=== PATIENT | female | born 1940 | race Caucasian/White ===

== ENCOUNTER 2020-09-12 18:00 | Inpatient (IN) | payer MEDICARE, OTHER ==
[2020-09-12] MEDS ORDERED: HYDROcodone/Acetaminophen 10/325 mg Tablet ONE (18:48)
[2020-09-12 19:38] LABS: #Eosinphils 0.1 thou/uL (0.0-0.7); #Lymphocytes 1.1 thou/uL (1.20-3.40); #Monocytes 0.4 thou/uL (0.11-0.59); #Neutrophils 4.4 thou/uL (1.40-6.50); %Basophils 0.6 % (0.0-1.0); %Eosinophils 1.7 % (0.0-10.0); %Lymphocytes 18.3 % (21.0-51.0); %Monocytes 6.1 % (0.0-10.0); %Neutrophils 73.3 % (42.0-75.0); Hemoglobin 14.1 g/dL (12.0-16.0); Mean Corpuscular HGB CONC 35.1 g/dL (32.0-36.0); Mean Corpuscular Hemoglobin 33.1 pg (27.0-31.0); Mean Corpuscular Volume 94.4 fL (78.0-98.0); Mean Platelet Volume 7.8 fL (7.4-10.4); Platelet Count 205 thou/uL (130-400); RBC Distribution Width 11.6 % (11.5-14.5); Red Blood Cell (RBC) Count 4.27 mill/uL (4.20-5.40)
[2020-09-12 19:58] LABS: ALT (SGPT) 16 U/L (8-55); AST (SGOT) 20 U/L (5-34); Albumin 4.3 g/dL (3.4-4.8); Alkaline Phosphatase 105 U/L (40-110); Anion Gap 16 mmol/L (10-20); BUN (Urea Nitrogen) 20 mg/dL (9.8-20.1); Bilirubin, Total 0.3 mg/dL (0.2-1.2); Calc. Creatinine Clearance 0 mL/min (70-130); Calcium 10.2 mg/dL (7.8-10.44); Carbon Dioxide 24 mmol/L (23-31); Chloride 106 mmol/L (98-107); Globulin 2.8 g/dL (2.4-3.5); Glucose 102 mg/dL (83-110); INR-International Normal Ratio 0.9; PTT 25.2 sec (22.9-36.1); Potassium 4.5 mmol/L (3.5-5.1); Protein, Total 7.1 g/dL (5.8-8.1); Prothrombin Time 12.4 sec (12.0-14.7); Sodium 141 mmol/L (136-145)
[2020-09-12] MEDS ORDERED: Dextrose 5% in Water 1,000 ML IV PRN (21:06)
[2020-09-12] MEDS ORDERED: Dextrose 50% Abboject 50 ML SYRINGE SLOW IVP PRN (21:06)
[2020-09-12] MEDS ORDERED: Ondansetron ODT 4 MG TAB PO PRN (21:06)
[2020-09-12] MEDS ORDERED: Ondansetron PF 4 MG/2 ML Vial IVP PRN (21:06)
[2020-09-12] MEDS ORDERED: Melatonin 3 MG TAB PO PRN (21:06)
[2020-09-12] MEDS ORDERED: traMADol HCl 50 MG TAB PO PRN (21:06)
[2020-09-12] MEDS: Cyclobenzaprine 10 MG TAB PO PRN (21:56)
[2020-09-12] MEDS: Milk Of Magnesia 30 ML UDCUP PO PRN (21:56)
[2020-09-12] MEDS: hydrALAZINE 20 MG/ML VIAL SLOW IVP PRN (21:57)
[2020-09-12] MEDS: Ibuprofen 800 MG TAB PO SCH (21:57)
[2020-09-13] MEDS: Sodium Chloride 0.9% 1,000 ML IV SCH ×2 (00:44→11:58)
[2020-09-13] MEDS: Acetaminophen 325 MG TAB PO SCH ×5 (00:44→23:19)
[2020-09-13 02:58] VITALS: BMI 19.4
[2020-09-13] MEDS: traMADol HCl 50 MG TAB PO PRN ×2 (03:09→16:28)
[2020-09-13] MEDS ORDERED: Famotidine 20 MG TAB PO SCH (03:15)
[2020-09-13 05:20] LABS: #Basophils 0.1 thou/uL (0.0-0.2); #Eosinphils 0.1 thou/uL (0.0-0.7); #Lymphocytes 1.1 thou/uL (1.20-3.40); #Monocytes 0.4 thou/uL (0.11-0.59); #Neutrophils 7.1 thou/uL (1.40-6.50); %Basophils 0.6 % (0.0-1.0); %Eosinophils 0.8 % (0.0-10.0); %Lymphocytes 12.8 % (21.0-51.0); %Neutrophils 80.9 % (42.0-75.0); Hemoglobin 12.5 g/dL (12.0-16.0); Mean Corpuscular HGB CONC 34.7 g/dL (32.0-36.0); Mean Corpuscular Hemoglobin 32.7 pg (27.0-31.0); Mean Corpuscular Volume 94.2 fL (78.0-98.0); Mean Platelet Volume 7.9 fL (7.4-10.4); Platelet Count 159 thou/uL (130-400); RBC Distribution Width 11.7 % (11.5-14.5); Red Blood Cell (RBC) Count 3.84 mill/uL (4.20-5.40); White Blood Cell (WBC) Count 8.8 thou/uL (4.8-10.8)
[2020-09-13 05:36] LABS: Anion Gap 12 mmol/L (10-20); BUN (Urea Nitrogen) 17 mg/dL (9.8-20.1); Calc. Creatinine Clearance 51 mL/min (70-130); Calcium 8.9 mg/dL (7.8-10.44); Carbon Dioxide 22 mmol/L (23-31); Chloride 110 mmol/L (98-107); Glucose 100 mg/dL (83-110); Sodium 140 mmol/L (136-145)
[2020-09-13] MEDS: Ibuprofen 800 MG TAB PO SCH ×4 (06:08→23:19)
[2020-09-13] MEDS: hydrALAZINE 20 MG/ML VIAL SLOW IVP PRN (06:09)
[2020-09-13] MEDS ORDERED: Fentanyl 100 MCG/2 ML VIAL ONE (07:17)
[2020-09-13] MEDS ORDERED: SUGAMMADEX SODIUM 500 MG/5 ML VIAL ONE (07:18)
[2020-09-13] MEDS ORDERED: Protamine Sulfate 50 MG/5 ML VIAL ONE (07:18)
[2020-09-13] MEDS ORDERED: CEFAZOLIN 2 GM in Premix Bag 1 BAG IVPB SCH (08:00)
[2020-09-13] MEDS ORDERED: Rocuronium Bromide 10 MG/ML (10ML VIAL) ONE (08:27)
[2020-09-13] MEDS ORDERED: Lidocaine 1% PF 5 ML VIAL ONE (08:27)
[2020-09-13] MEDS ORDERED: PROPOFOL 200 MG/20 ML VIAL ONE (08:27)
[2020-09-13] MEDS ORDERED: Glycopyrrolate 0.2 MG/ML 5 ML SYRINGE ONE (08:27)
[2020-09-13] MEDS ORDERED: Ondansetron PF 4 MG/2 ML Vial ONE (08:27)
[2020-09-13] MEDS ORDERED: Dexamethasone 20 MG/5 ML VIAL ONE (08:27)
[2020-09-13] MEDS ORDERED: Non-Formulary Item 1 EACH (Denosumab 60 MG/ML Vial) SC SCH (10:15)
[2020-09-13] MEDS: Senokot S 8.6-50 MG TAB PO SCH ×2 (11:59→21:23)
[2020-09-13] MEDS: Amantadine HCl 100 mg Capsule PO SCH (11:59)
[2020-09-13] MEDS: Polyethylene Glycol 3350 17 GM Packet PO SCH (11:59)
[2020-09-13] MEDS: Cyclobenzaprine 10 MG TAB PO PRN (12:16)
[2020-09-13] MEDS ORDERED: Melatonin 3 MG TAB PO PRN (15:00)
[2020-09-13] MEDS: Carbidopa/Levodopa 25-100 mg Tablet PO SCH ×2 (16:31→21:23)
[2020-09-13] MEDS: CEFAZOLIN 2 GM in Premix Bag 1 BAG IVPB SCH ×2 (16:32→23:21)
[2020-09-13] MEDS: Trihexyphenidyl 2 MG TAB PO SCH (17:53)
[2020-09-13] MEDS: Milk Of Magnesia 30 ML UDCUP PO PRN (18:53)
[2020-09-13 18:55] LABS: Bacteria/HPF 4+ HPF (None Seen); Bilirubin Negative (Negative); Blood, Urine Trace (Negative); Clarity Turbid (Clear); Glucose, Urine (Dipstick) Normal (Negative); Ketone, Urine Negative (Negative); Leukocyte 500 Leu/uL (Negative); Nitrite 1+ (Negative); Protein, Urine (Dipstick) 20 mg/dL (Neg-Trace); Specific Gravity, Urine 1.017 (1.002-1.036); Squamous Epithelial 0-3 HPF (0-3); Urobilinogen Normal mg/dL (Less than 2); WBC/HPF Greater than 50 HPF (0-3)
[2020-09-13 18:57] LABS: Urine Culture Reflex Yes Yes
[2020-09-13] MEDS: Famotidine 20 MG TAB PO SCH (21:26)
[2020-09-13] MEDS: cefTRIAXone\\ROCEPHIN 1 GM in Sodium Chloride 0.9% 100 ML IVPB SCH (21:51)
[2020-09-14] MEDS: Acetaminophen 325 MG TAB PO SCH ×4 (05:07→23:19)
[2020-09-14] MEDS: Ibuprofen 800 MG TAB PO SCH ×3 (05:07→22:01)
[2020-09-14] MEDS: Trihexyphenidyl 2 MG TAB PO SCH ×2 (08:06→17:22)
[2020-09-14] MEDS: Senokot S 8.6-50 MG TAB PO SCH ×2 (08:25→20:41)
[2020-09-14] MEDS: Carbidopa/Levodopa 25-100 mg Tablet PO SCH ×3 (08:25→20:41)
[2020-09-14] MEDS: Polyethylene Glycol 3350 17 GM Packet PO SCH (08:25)
[2020-09-14] MEDS: Amantadine HCl 100 mg Capsule PO SCH (08:26)
[2020-09-14] MEDS: Milk Of Magnesia 30 ML UDCUP PO PRN (12:10)
[2020-09-14] MEDS: Cyclobenzaprine 10 MG TAB PO PRN (12:11)
[2020-09-14] MEDS ORDERED: traMADol HCl 50 MG TAB PO PRN (17:00)
[2020-09-14] MEDS: traMADol HCl 50 MG TAB PO SCH ×2 (17:20→22:02)
[2020-09-14] MEDS ORDERED: Sodium Chloride 0.9% 1,000 ML IV SCH (18:15)
[2020-09-14] MEDS: Famotidine 20 MG TAB PO SCH (20:41)
[2020-09-14] MEDS: Melatonin 3 MG TAB PO SCH (20:42)
[2020-09-14] MEDS: cefTRIAXone\\ROCEPHIN 1 GM in Sodium Chloride 0.9% 100 ML IVPB SCH (22:00)
[2020-09-15 05:37] LABS: #Eosinphils 0.3 thou/uL (0.0-0.7); #Lymphocytes 1.2 thou/uL (1.20-3.40); #Monocytes 0.4 thou/uL (0.11-0.59); %Basophils 0.4 % (0.0-1.0); %Eosinophils 4.7 % (0.0-10.0); %Lymphocytes 20.5 % (21.0-51.0); %Monocytes 6.3 % (0.0-10.0); %Neutrophils 68.1 % (42.0-75.0); Hemoglobin 10.1 g/dL (12.0-16.0); Mean Corpuscular HGB CONC 33.3 g/dL (32.0-36.0); Mean Corpuscular Hemoglobin 31.7 pg (27.0-31.0); Mean Corpuscular Volume 95.1 fL (78.0-98.0); Mean Platelet Volume 8.5 fL (7.4-10.4); Platelet Count 135 thou/uL (130-400); RBC Distribution Width 11.8 % (11.5-14.5); Red Blood Cell (RBC) Count 3.18 mill/uL (4.20-5.40); White Blood Cell (WBC) Count 5.9 thou/uL (4.8-10.8)
[2020-09-15 05:38] LABS: Anion Gap 10 mmol/L (10-20); BUN (Urea Nitrogen) 18 mg/dL (9.8-20.1); Calc. Creatinine Clearance 47 mL/min (70-130); Calcium 8.6 mg/dL (7.8-10.44); Carbon Dioxide 22 mmol/L (23-31); Chloride 110 mmol/L (98-107); Glucose 96 mg/dL (83-110); Magnesium 2.2 mg/dL (1.6-2.6); Potassium 4.4 mmol/L (3.5-5.1); Sodium 138 mmol/L (136-145)
[2020-09-15] MEDS: Acetaminophen 325 MG TAB PO SCH ×3 (05:59→17:22)
[2020-09-15] MEDS: Ibuprofen 800 MG TAB PO SCH (06:00)
[2020-09-15] MEDS: traMADol HCl 50 MG TAB PO SCH ×2 (06:00→20:41)
[2020-09-15] MEDS ORDERED: Bisacodyl 10 MG SUPP PR PRN (06:07)
[2020-09-15] MEDS: Polyethylene Glycol 3350 17 GM Packet PO SCH (08:18)
[2020-09-15] MEDS: Trihexyphenidyl 2 MG TAB PO SCH ×2 (08:18→15:41)
[2020-09-15] MEDS: Carbidopa/Levodopa 25-100 mg Tablet PO SCH ×3 (08:19→20:44)
[2020-09-15] MEDS: Amantadine HCl 100 mg Capsule PO SCH (08:19)
[2020-09-15] MEDS: Senokot S 8.6-50 MG TAB PO SCH ×2 (08:20→20:43)
[2020-09-15] MEDS ORDERED: Ibuprofen 800 MG TAB PO PRN (09:15)
[2020-09-15] MEDS: Aspirin 81 mg Enteric Coated Tablet PO SCH ×2 (09:21→20:40)
[2020-09-15] MEDS: traMADol HCl 50 MG TAB PO PRN (13:47)
[2020-09-15] MEDS: Milk Of Magnesia 30 ML UDCUP PO PRN (15:45)
[2020-09-15] MEDS: Famotidine 20 MG TAB PO SCH (20:40)
[2020-09-15] MEDS: cefTRIAXone\\ROCEPHIN 1 GM in Sodium Chloride 0.9% 100 ML IVPB SCH (20:40)
[2020-09-15] MEDS: Melatonin 3 MG TAB PO SCH (20:43)
[2020-09-15] MEDS: Cyclobenzaprine 10 MG TAB PO PRN (21:09)
[2020-09-16] MEDS: Acetaminophen 325 MG TAB PO SCH ×4 (00:34→17:25)
[2020-09-16] MEDS: Trihexyphenidyl 2 MG TAB PO SCH ×2 (06:03→17:26)
[2020-09-16] MEDS: Polyethylene Glycol 3350 17 GM Packet PO SCH (08:52)
[2020-09-16] MEDS: Amantadine HCl 100 mg Capsule PO SCH (08:52)
[2020-09-16] MEDS: Carbidopa/Levodopa 25-100 mg Tablet PO SCH ×3 (08:52→20:21)
[2020-09-16] MEDS: traMADol HCl 50 MG TAB PO SCH ×2 (08:54→20:19)
[2020-09-16] MEDS: Senokot S 8.6-50 MG TAB PO SCH ×2 (08:55→20:20)
[2020-09-16] MEDS: Aspirin 81 mg Enteric Coated Tablet PO SCH ×2 (08:55→20:19)
[2020-09-16] MEDS: Melatonin 3 MG TAB PO SCH (20:19)
[2020-09-17] MEDS: Acetaminophen 325 MG TAB PO SCH ×5 (02:05→23:44)
[2020-09-17] MEDS: Trihexyphenidyl 2 MG TAB PO SCH ×2 (06:05→17:38)
[2020-09-17] MEDS ORDERED: Ciprofloxacin 500 MG TAB PO SCH (07:30)
[2020-09-17] MEDS: Amantadine HCl 100 mg Capsule PO SCH ×2 (09:27→09:32)
[2020-09-17] MEDS: Aspirin 81 mg Enteric Coated Tablet PO SCH ×2 (09:32→21:49)
[2020-09-17] MEDS: Carbidopa/Levodopa 25-100 mg Tablet PO SCH ×4 (09:33→21:49)
[2020-09-17] MEDS: Senokot S 8.6-50 MG TAB PO SCH ×2 (09:33→21:48)
[2020-09-17] MEDS: Polyethylene Glycol 3350 17 GM Packet PO SCH (09:34)
[2020-09-17] MEDS: traMADol HCl 50 MG TAB PO SCH ×2 (09:34→21:50)
[2020-09-17] MEDS: traMADol HCl 50 MG TAB PO PRN (14:57)
[2020-09-17] MEDS: Pramipexole Di-HCl 0.25 MG TAB PO SCH ×2 (15:00→21:48)
[2020-09-17] MEDS: Ciprofloxacin 500 MG TAB PO SCH (21:49)
[2020-09-17] MEDS: Melatonin 3 MG TAB PO SCH (21:50)
[2020-09-18] MEDS: Ciprofloxacin 500 MG TAB PO SCH (06:32)
[2020-09-18] MEDS: Trihexyphenidyl 2 MG TAB PO SCH (06:32)
[2020-09-18] MEDS: Acetaminophen 325 MG TAB PO SCH ×2 (06:33→13:18)
[2020-09-18] MEDS ORDERED: Magnesium Citrate 300 ML BOT PO SCH (08:45)
[2020-09-18] MEDS ORDERED: Bisacodyl 10 MG SUPP PR SCH (09:00)
[2020-09-18] MEDS: Carbidopa/Levodopa 25-100 mg Tablet PO SCH ×2 (09:42→13:17)
[2020-09-18] MEDS: traMADol HCl 50 MG TAB PO SCH (09:43)
[2020-09-18] MEDS: Pramipexole Di-HCl 0.25 MG TAB PO SCH (09:44)
[2020-09-18] MEDS: Aspirin 81 mg Enteric Coated Tablet PO SCH (09:45)
[2020-09-18] MEDS: Senokot S 8.6-50 MG TAB PO SCH (09:45)
[2020-09-18] MEDS: Polyethylene Glycol 3350 17 GM Packet PO SCH (09:45)
[2020-09-18 12:32] VITALS: BP 131/81; TEMP 98.4
[2020-09-18] MEDS ORDERED: guaiFENesin ER 600 MG TAB PO SCH (21:00)
== END 2020-09-18 15:15 | DRG 481 ==
LOC: ERS 18:00 → SURG A 20:21
PROVIDERS: ADMIT Surgery; ATTEND Surgery
PROC: 0QH604Z Insertion of Internal Fixation Device into Right Upper Femur, Open Approach (ICD-10-PCS; principal; 2020-09-13)
DX: S72.141A Displaced intertrochanteric fracture of right femur, initial encounter for closed fracture (principal); N39.0 Urinary tract infection, site not specified; I10 Essential (primary) hypertension; G20 Parkinson's disease; W18.30XA Fall on same level, unspecified, initial encounter; R33.9 Retention of urine, unspecified; K59.00 Constipation, unspecified; Y92.009 Unspecified place in unspecified non-institutional (private) residence as the place of occurrence of the external cause
CPT/HCPCS: 36415; 71045; 72170; 72192; 74230; 76000; 80048; 80053; 81001; 83735; 84100; 85025; 85610; 85730; 86850; 86900; 86901; 87077; 87086; 87186; 93005; 93010; C1713; J0360; J0690; J0696; J1100; J2405; J2704; J2720; J3010; J3490

== ENCOUNTER 2021-10-29 11:14 | Outpatient (CLI) | payer MEDICARE | END 2021-10-29 11:15 | disposition home or self-care (01) | LOC: LABBT 11:14 | PROVIDERS: ATTEND Family Medicine | DX: Z20.822 Contact with and (suspected) exposure to COVID-19 (principal) | CPT/HCPCS: 87811 ==

== ENCOUNTER 2021-11-01 10:46 | Outpatient (CLI) | payer MEDICARE | END 2021-11-01 10:47 | disposition home or self-care (01) | LOC: RAD 10:46 | PROVIDERS: ATTEND Physician Assistant Medical | DX: R13.12 Dysphagia, oropharyngeal phase (principal); R63.30 Feeding difficulties, unspecified | CPT/HCPCS: 74230 ==

== ENCOUNTER 2021-11-19 22:56 | Inpatient (IN) | payer MEDICARE ==
[2021-11-20] MEDS ORDERED: Ondansetron PF 4 MG/2 ML Vial ONE (01:17)
[2021-11-20] MEDS ORDERED: Morphine 4 MG/ML VIAL ONE (01:17)
[2021-11-20 01:53] LABS: #Lymphocytes 0.6 thou/uL (1.20-3.40); #Monocytes 0.3 thou/uL (0.11-0.59); #Neutrophils 8.7 thou/uL (1.40-6.50); %Basophils 0.3 % (0.0-1.0); %Eosinophils 0.2 % (0.0-10.0); %Lymphocytes 6.2 % (21.0-51.0); %Monocytes 3.5 % (0.0-10.0); %Neutrophils 89.8 % (42.0-75.0); Hemoglobin 14.1 g/dL (12.0-16.0); Mean Corpuscular HGB CONC 33.4 g/dL (32.0-36.0); Mean Corpuscular Hemoglobin 31.5 pg (27.0-31.0); Mean Corpuscular Volume 94.5 fL (78.0-98.0); Platelet Count 216 thou/uL (130-400); RBC Distribution Width 11.8 % (11.5-14.5); Red Blood Cell (RBC) Count 4.48 mill/uL (4.20-5.40); White Blood Cell (WBC) Count 9.7 thou/uL (4.8-10.8)
[2021-11-20 02:14] LABS: ALT (SGPT) 28 U/L (8-55); AST (SGOT) 36 U/L (5-34); Albumin 4.6 g/dL (3.4-4.8); Alkaline Phosphatase 110 U/L (40-110); Anion Gap 15 mmol/L (10-20); BUN (Urea Nitrogen) 24 mg/dL (9.8-20.1); Bilirubin, Total 0.7 mg/dL (0.2-1.2); Calc. Creatinine Clearance 0 mL/min (70-130); Calcium 10.7 mg/dL (7.8-10.44); Carbon Dioxide 26 mmol/L (23-31); Chloride 99 mmol/L (98-107); Estimated GFR 60; Globulin 2.7 g/dL (2.4-3.5); Glucose 147 mg/dL (83-110); Lipase 13 U/L (8-78); Magnesium 2.5 mg/dL (1.6-2.6); Potassium 4.2 mmol/L (3.5-5.1); Protein, Total 7.3 g/dL (5.8-8.1); Sodium 136 mmol/L (136-145)
[2021-11-20 05:45] LABS: SARS-CoV-2 NAA Rapid Test Not Detected (NotDetected)
[2021-11-20] MEDS ORDERED: Sodium Chloride 0.9% 1,000 ML IV SCH (08:45)
[2021-11-20] MEDS ORDERED: Ondansetron PF 4 MG/2 ML Vial IVP PRN (09:52)
[2021-11-20] MEDS ORDERED: Iopamidol 370 76% 100 ML VIAL ONE (09:57)
[2021-11-20] MEDS: Morphine 2 MG/ML VIAL SLOW IVP PRN ×2 (10:06→22:05)
[2021-11-20 11:05] VITALS: BMI 20.5
[2021-11-20] MEDS ORDERED: Meropenem 1 GM in Sodium Chloride 0.9% 100 ML IVPB SCH (13:15)
[2021-11-20] MEDS: Carbidopa/Levodopa 25-100 mg Tablet PO SCH ×2 (14:22→21:07)
[2021-11-20] MEDS ORDERED: PROPOFOL 200 MG/20 ML VIAL ONE (15:49)
[2021-11-20] MEDS ORDERED: Ondansetron HCl/PF 4 MG/2 ML Vial IVP PRN (16:08)
[2021-11-20] MEDS ORDERED: Promethazine HCl 25 MG/ML VIAL IVPB PRN (16:08)
[2021-11-20] MEDS ORDERED: Promethazine HCl 25 MG/ML VIAL IM PRN (16:08)
[2021-11-20] MEDS: Lactated Ringer's 1,000 ML IV SCH ×2 (16:51→22:11)
[2021-11-20] MEDS: Trihexyphenidyl 2 MG TAB PO SCH (16:56)
[2021-11-20] MEDS ORDERED: LEVODOPA PO SCH (17:00)
[2021-11-20] MEDS ORDERED: CARBIDOPA PO SCH (17:00)
[2021-11-20] MEDS: Enoxaparin Sodium 40 MG/0.4 ML SYRINGE SC SCH (20:32)
[2021-11-20] MEDS: Pramipexole Di-HCl 0.125 MG TAB PO SCH (21:07)
[2021-11-20] MEDS ORDERED: Magnesium Citrate 300 ML BOT PO SCH (21:15)
[2021-11-21 05:11] LABS: #Eosinphils 0.2 thou/uL (0.0-0.7); #Lymphocytes 1.3 thou/uL (1.20-3.40); #Monocytes 0.6 thou/uL (0.11-0.59); #Neutrophils 6.7 thou/uL (1.40-6.50); %Basophils 0.5 % (0.0-1.0); %Eosinophils 2.2 % (0.0-10.0); %Lymphocytes 14.5 % (21.0-51.0); %Monocytes 6.7 % (0.0-10.0); %Neutrophils 76.2 % (42.0-75.0); Hemoglobin 12.8 g/dL (12.0-16.0); Mean Corpuscular HGB CONC 34.2 g/dL (32.0-36.0); Mean Corpuscular Hemoglobin 32.9 pg (27.0-31.0); Mean Corpuscular Volume 96.1 fL (78.0-98.0); Mean Platelet Volume 7.7 fL (7.4-10.4); Platelet Count 168 thou/uL (130-400); RBC Distribution Width 11.6 % (11.5-14.5); Red Blood Cell (RBC) Count 3.88 mill/uL (4.20-5.40); White Blood Cell (WBC) Count 8.8 thou/uL (4.8-10.8)
[2021-11-21 05:33] LABS: Anion Gap 12 mmol/L (10-20); BUN (Urea Nitrogen) 17 mg/dL (9.8-20.1); Calc. Creatinine Clearance 58 mL/min (70-130); Carbon Dioxide 23 mmol/L (23-31); Chloride 106 mmol/L (98-107); Estimated GFR 81; Glucose 83 mg/dL (83-110); Sodium 137 mmol/L (136-145)
[2021-11-21] MEDS: Lactated Ringer's 1,000 ML IV SCH ×3 (05:46→21:19)
[2021-11-21] MEDS ORDERED: Bupivacaine HCl 0.5%/Epinephrine 1:200,000/PF 30 ml Vial ONE (06:39)
[2021-11-21] MEDS ORDERED: fentaNYL Citrate/PF 100 MCG/2 ML SYRINGE ONE (07:09)
[2021-11-21] MEDS: Trihexyphenidyl 2 MG TAB PO SCH ×2 (07:30→16:16)
[2021-11-21] MEDS: Pramipexole Di-HCl 0.125 MG TAB PO SCH ×3 (07:30→21:19)
[2021-11-21] MEDS: Carbidopa/Levodopa 25-100 mg Tablet PO SCH ×4 (07:30→21:19)
[2021-11-21] MEDS ORDERED: Albumin 5% 500 ML ONE (07:49)
[2021-11-21] MEDS ORDERED: hydrALAZINE 20 MG/ML VIAL SLOW IVP PRN (08:11)
[2021-11-21] MEDS ORDERED: Rocuronium Bromide 10 MG/ML (10ML VIAL) ONE (08:30)
[2021-11-21] MEDS ORDERED: Ondansetron PF 4 MG/2 ML Vial ONE (08:30)
[2021-11-21] MEDS ORDERED: NEOSTIGMINE 3 MG/3 ML SYR 3 MG/3 ML SYRINGE ONE (08:30)
[2021-11-21] MEDS ORDERED: Ketorolac Tromethamine 30 MG/ML VIAL ONE (08:30)
[2021-11-21] MEDS ORDERED: PROPOFOL 200 MG/20 ML VIAL ONE (08:30)
[2021-11-21] MEDS ORDERED: Phenylephrine 10 MG/ML VIAL ONE (08:30)
[2021-11-21] MEDS ORDERED: Lidocaine 1% MPF 2 ML VIAL ONE (08:30)
[2021-11-21] MEDS ORDERED: Dexamethasone 20 MG/5 ML VIAL ONE (08:30)
[2021-11-21] MEDS ORDERED: Glycopyrrolate 0.2 MG/ML 5 ML SYRINGE ONE (08:30)
[2021-11-21] MEDS ORDERED: Promethazine HCl 25 MG/ML VIAL IM PRN (10:57)
[2021-11-21] MEDS ORDERED: Promethazine HCl 25 MG/ML VIAL IVPB PRN (10:57)
[2021-11-21] MEDS ORDERED: Ondansetron HCl/PF 4 MG/2 ML Vial IVP PRN (10:57)
[2021-11-21] MEDS ORDERED: HYDROmorphone 2 MG/ML VIAL SLOW IVP PRN (10:57)
[2021-11-21] MEDS ORDERED: Ondansetron ODT 8 MG TAB SL PRN (11:04)
[2021-11-21] MEDS ORDERED: Ondansetron ODT 8 MG TAB PO PRN (11:04)
[2021-11-21] MEDS ORDERED: Ondansetron ODT 4 MG TAB PO PRN (11:04)
[2021-11-21] MEDS ORDERED: traMADol HCl 50 MG TAB PO PRN (11:04)
[2021-11-21] MEDS ORDERED: Morphine 2 MG/ML VIAL SLOW IVP PRN (11:12)
[2021-11-21] MEDS: Acetaminophen 500 MG TAB PO SCH ×3 (13:20→23:56)
[2021-11-21] MEDS: Ketorolac Tromethamine 30 MG/ML VIAL IVP SCH ×3 (13:20→23:51)
[2021-11-21] MEDS: Scopolamine 1.5 mg/72 hour Patch TD SCH (14:38)
[2021-11-21] MEDS: Enoxaparin Sodium 40 MG/0.4 ML SYRINGE SC SCH (21:18)
[2021-11-22] MEDS: Acetaminophen 500 MG TAB PO SCH ×5 (03:14→23:54)
[2021-11-22 04:52] LABS: #Lymphocytes 1.1 thou/uL (1.20-3.40); #Monocytes 0.5 thou/uL (0.11-0.59); #Neutrophils 6.4 thou/uL (1.40-6.50); %Basophils 0.1 % (0.0-1.0); %Eosinophils 0.3 % (0.0-10.0); %Lymphocytes 13.7 % (21.0-51.0); %Monocytes 6.7 % (0.0-10.0); %Neutrophils 79.2 % (42.0-75.0); Hemoglobin 10.4 g/dL (12.0-16.0); Mean Corpuscular HGB CONC 34.3 g/dL (32.0-36.0); Mean Corpuscular Hemoglobin 32.4 pg (27.0-31.0); Mean Corpuscular Volume 94.6 fL (78.0-98.0); Mean Platelet Volume 7.7 fL (7.4-10.4); Platelet Count 171 thou/uL (130-400); RBC Distribution Width 11.6 % (11.5-14.5); Red Blood Cell (RBC) Count 3.21 mill/uL (4.20-5.40); White Blood Cell (WBC) Count 8.1 thou/uL (4.8-10.8)
[2021-11-22 05:28] LABS: Anion Gap 14 mmol/L (10-20); BUN (Urea Nitrogen) 12 mg/dL (9.8-20.1); Calc. Creatinine Clearance 61 mL/min (70-130); Calcium 8.8 mg/dL (7.8-10.44); Carbon Dioxide 23 mmol/L (23-31); Chloride 105 mmol/L (98-107); Estimated GFR 87; Glucose 99 mg/dL (83-110); Potassium 4.2 mmol/L (3.5-5.1); Sodium 138 mmol/L (136-145)
[2021-11-22] MEDS: Ketorolac Tromethamine 30 MG/ML VIAL IVP SCH ×4 (05:49→23:55)
[2021-11-22] MEDS: Lactated Ringer's 1,000 ML IV SCH (05:50)
[2021-11-22] MEDS: Trihexyphenidyl 2 MG TAB PO SCH ×2 (07:59→16:25)
[2021-11-22] MEDS ORDERED: Amlodipine 5 MG TAB PO SCH (09:00)
[2021-11-22] MEDS: Pramipexole Di-HCl 0.125 MG TAB PO SCH ×3 (09:32→21:50)
[2021-11-22] MEDS: Carbidopa/Levodopa 25-100 mg Tablet PO SCH ×4 (09:33→21:50)
[2021-11-22] MEDS ORDERED: Lactated Ringer's 1,000 ML IV SCH (09:57)
[2021-11-22] MEDS ORDERED: Ondansetron ODT 8 MG TAB PO PRN (11:00)
[2021-11-22] MEDS: Enoxaparin Sodium 40 MG/0.4 ML SYRINGE SC SCH (21:50)
[2021-11-23 05:48] LABS: Hemoglobin 10.4 g/dL (12.0-16.0); Mean Corpuscular HGB CONC 32.7 g/dL (32.0-36.0); Mean Corpuscular Hemoglobin 30.9 pg (27.0-31.0); Mean Corpuscular Volume 94.5 fL (78.0-98.0); Mean Platelet Volume 7.3 fL (7.4-10.4); Platelet Count 193 thou/uL (130-400); RBC Distribution Width 11.5 % (11.5-14.5); Red Blood Cell (RBC) Count 3.35 mill/uL (4.20-5.40); White Blood Cell (WBC) Count 6.3 thou/uL (4.8-10.8)
[2021-11-23] MEDS: Acetaminophen 500 MG TAB PO SCH ×4 (06:02→22:01)
[2021-11-23] MEDS: Ketorolac Tromethamine 30 MG/ML VIAL IVP SCH ×2 (06:03→13:15)
[2021-11-23] MEDS: Trihexyphenidyl 2 MG TAB PO SCH ×2 (08:25→17:19)
[2021-11-23] MEDS: Carbidopa/Levodopa 25-100 mg Tablet PO SCH ×4 (09:54→21:35)
[2021-11-23] MEDS: Pramipexole Di-HCl 0.125 MG TAB PO SCH ×3 (09:55→21:36)
[2021-11-23] MEDS: Amlodipine 10 MG TAB PO SCH (09:55)
[2021-11-23] MEDS ORDERED: Ibuprofen 600 MG TAB PO PRN (14:55)
[2021-11-23] MEDS ORDERED: Simethicone 40 MG/0.6 ML Drop 30 ML BOT PO PRN (15:00)
[2021-11-23] MEDS ORDERED: Simethicone Chewable 80 MG TAB PO PRN (15:00)
[2021-11-23] MEDS ORDERED: Melatonin 3 MG TAB PO PRN (19:47)
[2021-11-23] MEDS: Enoxaparin Sodium 40 MG/0.4 ML SYRINGE SC SCH (21:36)
[2021-11-24] MEDS: Acetaminophen 500 MG TAB PO SCH ×2 (06:16→11:57)
[2021-11-24] MEDS: Trihexyphenidyl 2 MG TAB PO SCH (07:45)
[2021-11-24 08:21] VITALS: BP 168/90; TEMP 97.1
[2021-11-24] MEDS: Carbidopa/Levodopa 25-100 mg Tablet PO SCH ×2 (09:10→13:10)
[2021-11-24] MEDS: Pramipexole Di-HCl 0.125 MG TAB PO SCH (09:10)
[2021-11-24] MEDS: Amlodipine 10 MG TAB PO SCH (09:11)
[2021-11-24] MEDS: Scopolamine 1.5 mg/72 hour Patch TD SCH (11:58)
== END 2021-11-24 16:14 | disposition home health service (06) | DRG 331 ==
LOC: ERS 22:56 → MSONC 11-20 05:54 → OBSVTOIN 11-21 11:55
PROVIDERS: ADMIT Internal Medicine; ATTEND Internal Medicine
PROC: 0DJD8ZZ Inspection of Lower Intestinal Tract, Via Natural or Artificial Opening Endoscopic (ICD-10-PCS; 2021-11-20)
PROC: 0D1N0Z4 Bypass Sigmoid Colon to Cutaneous, Open Approach (ICD-10-PCS; principal; 2021-11-21)
PROC: 0DBN0ZZ Excision of Sigmoid Colon, Open Approach (ICD-10-PCS; 2021-11-21)
DX: K56.2 Volvulus (principal); G20 Parkinson's disease; Z20.822 Contact with and (suspected) exposure to COVID-19; K59.09 Other constipation; I10 Essential (primary) hypertension; Z79.82 Long term (current) use of aspirin; Z79.899 Other long term (current) drug therapy
CPT/HCPCS: 36415; 71045; 74177; 80048; 80053; 83690; 83735; 84484; 85025; 85027; 88307; 93005; 96374; 96375; 96376; 97139; A4649; G0378; J0360; J1100; J1650; J1885; J2270; J2370; J2405; J2704; J7050; J7120; P9045; Q9967; U0002